=== PATIENT | female | born 1955 | race Caucasian/White ===

== ENCOUNTER → 2017-06-13 | Outpatient (CLI) | payer OTHER ==
[2017-06-13 13:58] LABS: Basophils # (A) 0.1 k/uL (0-0.2); Basophils % (A) 1 %; Eosinophils # (A) 0.4 k/uL (0-0.7); Eosinophils % (A) 4 %; HCT 42.1 % (34.0-46.0); HGB 13.7 gm/dL (11.4-16.0); Lymphocytes # (A) 3.6 k/uL (1.0-4.8); Lymphocytes % (A) 35 %; MCH 30.1 pg (25.0-35.0); MCHC 32.6 g/dL (31.0-37.0); MCV 92.4 fL (80.0-100.0); Mean Platelet Volume 7.9; Monocytes # (A) 0.5 k/uL (0-1.0); Monocytes % (A) 5 %; Neutrophils # (A) 5.6 k/uL (1.3-7.7); Neutrophils % (A) 55 %; Platelet Count 220 k/uL (150-450); RBC 4.56 m/uL (3.80-5.40); RDW 14.1 % (11.5-15.5); WBC 10.3 k/uL (3.8-10.6)
[2017-06-13 14:07] LABS: INR 1.1 (<1.2); Partial Thromboplastin Time 24.7 sec (22.0-30.0); Prothrombin Time 10.3 sec (9.0-12.0)
[2017-06-13 14:13] LABS: Anion Gap 11 mmol/L; Appearance,Urine Cloudy (Clear); Bacteria,Urine Rare /hpf; Bilirubin,Urine Negative (Negative); Blood Urea Nitrogen 13 mg/dL (7-17); Blood,Urine Moderate (Negative); Calcium 9.8 mg/dL (8.4-10.2); Carbon Dioxide 26 mmol/L (22-30); Chloride 109 mmol/L (98-107); Color,Urine Yellow; Glucose 89 mg/dL (74-99); Glucose,Urine (UA) Negative (Negative); Ketones,Urine Negative (Negative); Leukocyte Esterase,Urine Small (Negative); Mucus,Urine Moderate /hpf; Nitrite,Urine Positive (Negative); PH, Urine 5.5 (5.0-8.0); Potassium 4.6 mmol/L (3.5-5.1); Protein,Urine Trace (Negative); RBC,Urine 12 /hpf (0-5); Sodium 146 mmol/L (137-145); Squamous Epithelial Cell,Urine 1 /hpf (0-4); Urobilinogen,Urine <2.0 mg/dL (<2.0); WBC,Urine 14 /hpf (0-5)
--- NOTE | 2017-06-13 15:36 | XR ---
EXAMINATION TYPE: XR chest 2V DATE OF EXAM: 06/13/2017 COMPARISON: Prior chest x-ray 08/17/2013 HISTORY: Preop, asthma TECHNIQUE: Frontal and lateral views of the chest are obtained. FINDINGS: There is no focal air space opacity, pleural effusion, or pneumothorax seen. The cardiac silhouette size is within normal limits. There is a spinal curvature as on prior. Postop changes are noted in the upper abdomen. Prominent lung volumes are compatible with underlying COPD. Bone minerali zation is reduced. The osseous structures are intact. IMPRESSION: No acute cardiopulmonary process.
== END | disposition home or self-care (01) ==
LOC: LABPAT 13:03
PROVIDERS: ATTEND Orthopaedic Surgery Orthopaedic Surgery of the Spine
DX: Z01.818 Encounter for other preprocedural examination (principal); M48.07 Spinal stenosis, lumbosacral region; Z01.812 Encounter for preprocedural laboratory examination
CPT/HCPCS: 36415; 71046; 80048; 81001; 85025; 85610; 85730; 87070

== ENCOUNTER → 2017-07-09 | Outpatient (CLI) | payer OTHER ==
--- NOTE | 2017-07-09 10:21 | US ---
EXAMINATION TYPE: US kidneys/renal and bladder DATE OF EXAM: 07/09/2017 COMPARISON: US CLINICAL HISTORY: R31.29 Hematuria. Patient stated is having cystoscopy today; took prescribed antibi otics for bladder bacteria per patient. EXAM MEASUREMENTS: Right Kidney: 9.6 x 5.2 x 4.4 cm Left Kidney: 9.2 x 3.9 x 4.6 cm Post Void Residual Volume: 95.6 mL Right Kidney: No hydronephrosis or masses seen Left Kidney: No hydronephrosis or masses seen Bladder: questionable left bladder wall thickness was noted Transverse View initially on image #[id number], then reassessed post void on images #[id number], [id number], [id number], 4096, and [id number] with light probe pressure patel sabdominally. Bilateral Jets seen: only left jet was seen on post void Normal Post Void Residual: abnormal as > 50.0ml IMPRESSION: 1. Mild urinary bladder wall thickening seen of the left lateral wall. Correlate with cystoscopy as t he patient is scheduled today for direct visualization. 2. No evidence of hydronephrosis or nephrolithiasis. 3. Abnormal post void residual within the urinary bladder 95.6 mL.
== END | disposition home or self-care (01) ==
LOC: RADUSWWP 08:57
PROVIDERS: ATTEND Urology
DX: N32.89 Other specified disorders of bladder (principal); R93.8 Abnormal findings on diagnostic imaging of other specified body structures; R31.29 Other microscopic hematuria
CPT/HCPCS: 76770

== ENCOUNTER 2017-07-11 09:47 | Inpatient (IN) | payer OTHER ==
[2017-07-04 13:00] VITALS: BMI 25.2
[~2017-07-11 09:47] MED LIST: BACITRACIN 50,000 UNIT, POLYMYXIN B 500,000 UNIT in SODIUM CHLORIDE 0.9% IRRIGATIO 1,00... IRRIGATION ONE; DEXAMETHASONE SOD PHOSPHATE 10 MG/ML 1 ML VIAL IV ONE; HYDROmorphone 0.5 MG/0.5 ML SYRINGE IVP PRN; LACTATED RINGERS 1,000 ML IV SCH; MORPHINE SULFATE 4 MG/ML SYRINGE IVP PRN; ONDANSETRON 4 MG/2 ML VIAL IVP ONE; ceFAZolin IN SWFI 2 GM/20 ML SYRINGE IVP ONE
[2017-07-11] MEDS ORDERED: LIDOCAINE 1% 20 ML VIAL (10MG/ML) FOR IV START INTRADERMA ONE (11:10)
[2017-07-11] MEDS ORDERED: LACTATED RINGERS 1,000 ML IV ONE ×2 (11:10→13:59)
[2017-07-11] MEDS ORDERED: SODIUM CHLORIDE 0.9% IRRIG 1,000 ML BTL IRRIGATION ONE (13:04)
[2017-07-11] MEDS ORDERED: MIDAZOLAM 2 MG/2 ML VIAL ONE (13:04)
[2017-07-11] MEDS ORDERED: HEPARIN SODIUM,PORCINE 10,000 UNIT/ML 1 ML VIAL ONE (13:04)
[2017-07-11] MEDS ORDERED: SUCCINYLCHOLINE CHLORIDE 100 MG/5 ML SYR IV ONE (13:04)
[2017-07-11] MEDS ORDERED: LIDOCAINE 1% INJ 10MG/ML (20 ML MDV) ONE (13:04)
[2017-07-11] MEDS ORDERED: PROPOFOL 10 MG/ML 20 ML VIAL IV ONE (13:04)
[2017-07-11] MEDS ORDERED: ePHEDrine SULFATE/0.9% NACL/PF 50 MG/5 ML SYRINGE IV ONE (13:04)
[2017-07-11] MEDS ORDERED: fentaNYL (PF) 50 MCG/ML 2 ML AMP ONE (13:04)
[2017-07-11] MEDS ORDERED: PHENYLEPHRINE-0.9% NACL SYG 1 MG/10 ML SYRINGE ONE (13:04)
[2017-07-11] MEDS ORDERED: BUPIVACAINE (PF) 0.25% 30 ML VIAL SQ ONE (13:37)
[2017-07-11] MEDS ORDERED: THROMBIN (BOVINE) 5,000 UNIT VIAL TOPICAL ONE (13:44)
[2017-07-11] MEDS ORDERED: GELATIN SPONGE,ABSORB (LARGE) 1 EACH SPONGE TOPICAL ONE (13:45)
[2017-07-11] MEDS ORDERED: HYDROcodone/APAP 5-325MG 1 EACH TAB PO PRN (15:34)
[2017-07-11] MEDS ORDERED: MAGNESIUM HYDROXIDE 2,400 MG/10 ML CUP PO PRN (15:34)
[2017-07-11] MEDS ORDERED: BENZOCAINE/MENTHOL LOZENG 1 EACH LOZENGE MUCOUS MEM PRN (15:34)
[2017-07-11] MEDS ORDERED: MORPHINE SULFATE 4 MG/ML SYRINGE IVP PRN ×2 (15:34)
[2017-07-11] MEDS ORDERED: ALBUTEROL NEBULIZED 2.5 MG/3 ML INHALATION PRN (15:37)
--- NOTE | 2017-07-11 15:44 | P.OP ---
Date of Procedure: 07/11/17 Preoperative Diagnosis: Grade 2 spondylolisthesis L5-S1 Degenerative disc disease Low back pain with lower extremity radiculopathy Foraminal stenosis Postoperative Diagnosis: Same Anesthesia: GETA Pathology: none sent Condition: stable Disposition: PACU Description of Procedure: DESCRIPTION OF PROCEDURE(S): BRIEF OPERATIVE NOTE Preoperative Diagnosis: Grade 2 spondylolisthesis L5-S1, degenerative disc disease, spinal stenosis, low back pain with lower extremity radiculopathy Postoperative Diagnosis: Same Procedure: Laminectomy and decompression with foraminotomy L5-S1 Minimally invasive Posterior lateral decompression and facet fusion L5-S1 Minimally invasive Transforaminal lumbar interbody fusion for a 360 fusion L5-S1 Discectomy for decompression L5-S1 Placement of interbody graft L5-S1 Harvesting of bone marrow aspirate viaThe vertebral body and pedicle of L5 Local autogenous bone grafting Use of Cell Saver Use of bone graft extenders Surgeon: Dr. Jimenez Project Landscape Architect: Nik JOHNSON who is present throughout the entire the case persistence during positioning, dissection, exposure, visualization, and all crucial elements of the case as well as closure. Anesthesia: General anesthesia Estimated blood loss: Approximately 100 mL with none given back through Cell Saver Complications: None apparent Components implanted: K2M [place] minimally invasive pedicle screw system with use of 4 screws measuring 6.5 x 45 mm in length, 2 rods, one Boyd interbody titanium cage, one Osteo amp sponge and 30 mL of DBX bone fibers to supplemental local autogenous bone graft and bone marrow aspirate Disposition: To recovery room in good stable condition. OPERATIVE INDICATIONS The patient has had long-standing issues in their lower back and lower extremities. She was found have a dynamic grade 2 spondylolisthesis L5-S1 with obvious motion and significant disc degeneration. She had foraminal stenosis as well. These findings correlated well with her low back and lower extremity symptoms. The patient has been through conservative treatment. She is not having any prolonged benefit despite aggressive conservative treatment and was having worsening debility due to her low back issues. We discussed various treatment options including surgery, and the patient wishes to proceed with surgery We discussed the risk, patient's alternatives and benefits of surgery including but not limited to, risk of bleeding risk of infection, risk of need for further surgery, risk of decreased, loss of motion, muscle function, malunion nonunion, hardware failure, nerve damage, paralysis, heart attack, blindness and . OPERATIVE SUMMARY After discussing all the risks, patient alternatives and benefits at length, the patient elected to proceed with surgical intervention, signed informed consent, and presented for their procedure. The patient was seen and examined in the preoperative holding area and the surgical site was marked. The patient was given antibiotics and brought to the operating room. The patient was sedated and intubated by anesthesia in standard fashion. The patient was positioned on to the operating room table in a prone position on the appropriate frame which was well-padded and well molded. We were careful to pad any bony prominences and pressure points. We were careful to maintain the patient's cervical spine and good neutral alignment and position throughout. The patient was prepped and draped in a normal standard fashion. An appropriate timeout and keystone protocol performed. We were able to proceed with the surgery. The local wound area was infiltrated with local anesthetic. I was able utilize C-arm guidance to establish appropriate position over the pedicles bilaterally at the appropriate levels at L5-S1. With the appropriate levels confirmed was able to make small stab incisions over the appropriate pedicle sites bilaterally. Utilizing C-arm in his house able to establish a Jamshidi needle over the lateral aspect of the pedicle and advanced the trocar into the pedicle being careful not to breech superiorly inferiorly medially or laterally. Position was confirmed regularly with AP and lateral images on C- arm. I was able to establish the trocar into the pedicle appropriately into the posterior aspect of the vertebral body bilaterally at the appropriate levels at L5 and S1. This was done at each of the pedicle positions and each of the vertebrae. I was able place the guidewire into the trocar and into the vertebral body appropriately under C-arm guidance. Dissection was taken down over the wire to the appropriate starting position for the screw placed. The appropriate length screw was chosen, threaded over the guidewire and screwed appropriately into the pedicle and vertebral body under C-arm guidance in excellent alignment and position with good bony purchase. This is done at each of the screw sites at the appropriate levels at L5 and S1. With the screws intact I extended the incision to connect the screw hole sites on the most symptomatic side on the left. I dissected down to establish access over the pars and lamina to the base of the spinous process. I was able to expose the facet joint. The capsule the facet was taken down and showed some facet arthrosis at the joint. I was able to use a combination of curettes and Kerrison rongeurs and a high-speed drill to take down the facet joint and do a facetectomy. Partial laminectomy was also performed. I was able get excellent foraminal decompression and central decompression with undermining across midline to perform a laminectomy centrally and contralaterally. As able get good central decompression. The ligamentum flavum was taken down to further decompress centrally and at bilateral neural foramen. I was able to expose the disc space and visualize the traversing nerve root. Note was made of some disc protrusion at the level causing further compression of the nerve root. I was able to establish a annulotomy at the appropriate level protecting soft tissue and neural structures. Note was made of some disc desiccation at the disc. I performed a complete discectomy at L5-S1 with accommodation of curettes and rasps and scrapers. Discectomy provided further decompression as well I was able get good endplate preparation at the disc space. I sized for the appropriate size interbody spacer protecting the soft tissue and neural structures. The wound was copiously irrigated and suctioned dry. There is no evidence of any dural tear or leak. I was able to pack the disc space with local autogenous bone graft as well as a small amount of bone graft which was also placed into the interbody cage itself. Protecting the soft tissue structures and neural structures I was able place the interbody cage in good alignment and good position with good fit and fill at the interbody space. His issues was confirmed with C-arm guidance. Good hemostasis maintained. There is no evidence of any dural tear or leak. The wound was irrigated and suctioned dry. With the hardware intact, intraoperative C-arm imaging was again taken which showed good alignment and position of the hardware at the appropriate levels at L5 and S1. We were then able to measure, contour and place the rods and appropriate hardware bilaterally. I was able get some reduction of the listhesis at L5-S1. I was able to place capcrews, tighten them down, and torque them with the torque screwdriver appropriately. With this intact I was able to place the local autogenous bone graft with additional bone graft enhancer as necessary into the posterior lateral gutters over the decorticated transverse processes. The remainder of the bone graft was placed over the facet joint on the contralateral side after taking down the facet joint capsule. With the bone graft intact, a stable construct, and good decompression at the appropriate levels, we were able to proceed with closure. Good hemostasis was maintained. There is no evidence of dural tear or leak. The fascia was closed for a watertight closure. he subcuticular tissue was closed with absorbable suture. The wound was cleaned and dried and dressed with the appropriate dressing. The drapes were broken down. The patient was gently rolled back onto their hospital bed being careful to maintain their cervical spine and good neutral alignment and position. They were woken up by anesthesia, extubated, and brought to the recovery room in good stable condition. The patient will be admitted to the hospital for appropriate postoperative care , medical management and monitoring. We will continue to follow them closely about the postoperative course.
[2017-07-11] MEDS ORDERED: ONDANSETRON 4 MG/2 ML VIAL IVP ONE (15:57)
--- NOTE | 2017-07-11 15:58 | XR ---
Limited lumbar spine HISTORY: Lumbar fusion 2 intraoperative C-arm images document the procedure
[2017-07-11] MEDS: MEPERIDINE 50 MG/ML SYRINGE IVP ONE ×2 (16:12→16:28)
[2017-07-11] MEDS: SODIUM CHLORIDE 0.9% 1,000 ML IV SCH (17:33)
[2017-07-11] MEDS: HYDROcodone/APAP 5-325MG 1 EACH TAB PO PRN ×2 (17:34→21:57)
[2017-07-11] MEDS: GABAPENTIN 300 MG CAP PO SCH ×2 (19:13→21:58)
[2017-07-11] MEDS: ceFAZolin IN SWFI 2 GM/20 ML SYRINGE IVP SCH (19:19)
[2017-07-11] MEDS: IPRATROPIUM-ALBUTEROL 3 ML NEB INHALATION SCH (21:00)
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
[2017-07-11] MEDS: NICOTINE 14MG/24HR PATCH TRANSDERM SCH (21:53)
[2017-07-11] MEDS: DIAZEPAM 5 MG TAB PO PRN (21:57)
[2017-07-12] MEDS: ceFAZolin IN SWFI 2 GM/20 ML SYRINGE IVP SCH (03:12)
[2017-07-12] MEDS: HYDROcodone/APAP 5-325MG 1 EACH TAB PO PRN ×4 (03:15→19:09)
[2017-07-12] MEDS: SODIUM CHLORIDE 0.9% 1,000 ML IV SCH ×2 (03:18→18:14)
[2017-07-12] MEDS: ONDANSETRON 4 MG/2 ML VIAL IVP PRN ×2 (03:26→17:50)
[2017-07-12 06:52] LABS: Basophils % (A) 0 %; Eosinophils # (A) 0.1 k/uL (0-0.7); Eosinophils % (A) 1 %; HCT 36.5 % (34.0-46.0); HGB 11.5 gm/dL (11.4-16.0); Lymphocytes # (A) 1.3 k/uL (1.0-4.8); Lymphocytes % (A) 10 %; MCH 29.3 pg (25.0-35.0); MCHC 31.5 g/dL (31.0-37.0); MCV 93.1 fL (80.0-100.0); Mean Platelet Volume 7.9; Monocytes # (A) 0.6 k/uL (0-1.0); Monocytes % (A) 5 %; Neutrophils # (A) 10.9 k/uL (1.3-7.7); Neutrophils % (A) 84 %; Platelet Count 195 k/uL (150-450); RBC 3.92 m/uL (3.80-5.40); RDW 13.7 % (11.5-15.5)
[2017-07-12 06:56] LABS: Blood Urea Nitrogen 10 mg/dL (7-17); Calcium 8.8 mg/dL (8.4-10.2); Carbon Dioxide 28 mmol/L (22-30); Glucose 121 mg/dL (74-99)
[2017-07-12 07:28] LABS: Anion Gap 8 mmol/L; Chloride 106 mmol/L (98-107); Sodium 142 mmol/L (137-145)
[2017-07-12 07:31] LABS: Potassium 4.8 mmol/L (3.5-5.1)
[2017-07-12] MEDS: GABAPENTIN 300 MG CAP PO SCH ×3 (08:02→21:55)
[2017-07-12] MEDS: amLODIPine 10 MG TAB PO SCH (08:02)
[2017-07-12] MEDS: ESCITALOPRAM 10 MG TAB PO SCH (08:02)
[2017-07-12] MEDS: ASPIRIN 81 MG PO SCH (08:02)
[2017-07-12] MEDS: FAMOTIDINE 20 MG TAB PO SCH (08:02)
[2017-07-12] MEDS: SENNOSIDES-DOCUSATE SODIUM 1 EACH TAB PO SCH (08:02)
[2017-07-12] MEDS: LISINOPRIL 20 MG TAB PO SCH (08:02)
--- NOTE | 2017-07-12 08:24 | P.PN ---
Progress Note - Text Progress Note Date: 07/12/17 Postoperative day #1 Patient is seen and examined today at bedside. The patient has some pain around the surgical site as expected. Pain is being controlled with medication. She has been able to get up out of bed. Her legs feel good but she is having back pain. Physical Exam Afebrile with stable vital signs Abdomen is soft nontender. Chest has good excursion deep and space expiration The incision site is clean dry and intact. No erythema there is no purulence. Extremities have not had neurologic change from prior to surgery. She has sustained dorsal flexion plantarflexion and extensor hallucis longus intact bilaterally. Calves and thighs were soft nontender without evidence of DVT. Assessment/Plan Postoperative day #1 status post minimally invasive decompression and fusion at L5-S1 for her grade 2 spondylolisthesis with degenerative disc disease stenosis and lower extremity radiculopathy Patient is progressing as expected from the surgery. She has already been able to get up out of bed and her legs are doing well. She has back pain as expected. This is being controlled appropriately. She does not feel that she is ready to mobilize on her own and will need another day in the hospital for her to be safely mobile. Hopefully she'll be able to go home and another 1-2 days. We will continue to increase the patient's mobilization with therapy. We will continue pain control with oral or IV medications. We'll continue to follow patient closely.
[2017-07-12] MEDS: BUDESONIDE 1 MG/2 ML NEBU INHALATION PRN ×2 (09:00→21:04)
[2017-07-12] MEDS: IPRATROPIUM-ALBUTEROL 3 ML NEB INHALATION SCH ×5 (09:00→21:02)
--- NOTE | 2017-07-12 15:20 | FL ---
Fluoroscopy HISTORY: Lumbar fusion 70 seconds fluoroscopy time supplied to the referring clinician. 2 intraoperative C-arm images docum ent the procedure. See dictated report from orthopedic surgery.
[2017-07-12] MEDS: HYDROmorphone 2 MG TAB PO PRN (15:56)
[2017-07-12] MEDS: NICOTINE 14MG/24HR PATCH TRANSDERM SCH (16:41)
[2017-07-12] MEDS: DIAZEPAM 5 MG TAB PO PRN (17:53)
--- NOTE | 2017-07-12 21:51 | PN ---
PROGRESS NOTE DATE OF SERVICE: 07/12/2017 PRESENTING COMPLAINT: Lumbar surgery. INTERVAL HISTORY: Patient is status post lumbar surgery, doing much better, did actually walk to the bathroom, ate a little bit of breakfast. Family at the bedside. Some pain is present with activity. Breathing is better with bronchodilators. REVIEW OF SYSTEMS: Done for constitutional, cardiovascular, GI, pulmonary, musculoskeletal; relevant findings as above. CURRENT MEDICATIONS: Reviewed. EXAMINATION: Temperature 98.9, pulse 80, respirations 14, blood pressure 118/58, pulse ox 94% on room air. GENERAL APPEARANCE: Lying in bed, comfortable. EYES: Left eye is artificial. HEENT: External appearance of nose and ears normal. Oral cavity normal. NECK: JVD unable to assess. Mass not palpable. Respiratory effort normal. LUNGS: Diminished breath sounds. CARDIOVASCULAR: First and second sounds normal. No edema. ABDOMEN: Soft, nontender. Liver, spleen not palpable. PSYCHIATRY: Alert and oriented x3. Mood and affect are normal. INVESTIGATIONS: White count 13, hemoglobin 11.5. Potassium 4.8. ASSESSMENT: 1. Grade 2 spondylolisthesis L5-L1 with foraminal stenosis causing radiculopathy followed by laminectomy and decompression with foraminotomy. 2. Chronic obstructive pulmonary disease in a current smoker. 3. Chronic nicotine dependence. Patient an active cigarette smoker. 4. Gastroesophageal reflux disease. 5. Essential hypertension. 6. Aortic stenosis. 7. Artificial left eye. 8. Depression, not otherwise specified. PLAN: Continue current medication and treatment plan. Care was discussed the patient. Questions were answered. Will follow. MMODL / IJN: [id number] /
[2017-07-13] MEDS: HYDROcodone/APAP 5-325MG 1 EACH TAB PO PRN ×5 (00:31→19:33)
[2017-07-13 07:34] LABS: Basophils % (A) 0 %; Eosinophils # (A) 0.1 k/uL (0-0.7); Eosinophils % (A) 0 %; HCT 32.7 % (34.0-46.0); HGB 10.5 gm/dL (11.4-16.0); Lymphocytes # (A) 2.1 k/uL (1.0-4.8); Lymphocytes % (A) 14 %; MCH 29.7 pg (25.0-35.0); MCV 92.9 fL (80.0-100.0); Mean Platelet Volume 8.7; Monocytes % (A) 7 %; Neutrophils # (A) 11.4 k/uL (1.3-7.7); Neutrophils % (A) 77 %; Platelet Count 160 k/uL (150-450); RBC 3.52 m/uL (3.80-5.40); RDW 13.7 % (11.5-15.5); WBC 14.8 k/uL (3.8-10.6)
--- NOTE | 2017-07-13 08:52 | P.PN ---
Progress Note - Text Progress Note Date: 07/13/17 Orthopedic Spine Patient is a pleasant 61-year-old female who is seen and examined at the bedside following posterior lateral decompression and fusion performed yesterday. Patient states they are doing ok postsurgically. She continues to have significant low back pain at the surgical sites. She has been eating bleeding with assistance of physical therapy. She continues to have some left lower extremity radiculopathy which was present prior to surgical intervention. She does not feel she is currently ready to be discharged home. Currently does not complain of nausea, vomiting, fever, or chills. Patient states pain has been adequately controlled with [place]. She states she does use medical marijuana as prescribed her some pain control at home. She does not currently feel medical marijuana at home alone will be enough to control her pain at discharge. We did discuss we'll plan to discharge her with a short course of [place] as needed for pain control and will plan to wean her back off of this in the outpatient setting. Patient is eating and voiding freely without difficulty. She'll be given a prescription for Glenford 5 mg/325 mg 1-2 tabs every 6 hours as needed for pain, dispense #90 at discharge. This prescription has been written and is placed in her chart. Physical Exam Lumbar Fusion: Status post surgical day number 2 Patient is awake, alert, and oriented 3 Vital signs stable Good chest excursion with deep inspiration and expiration Abdomen soft nontender Dorsiflexion, plantarflexion, and extensor hallucis longus positive sustained bilaterally No signs or symptoms of DVT; no calf pain; pneumatic cuffs not currently intact bilateral lower extremities Dressing is dry and intact; no erythema, purulence, or signs of infection Some evidence of dried blood at the inferior portion of the incision sites No active drainage from the incision sites Neurovascularly intact bilaterally lower extremities Assessment: Minimally invasive posterior lateral decompression and fusion with transforaminal lumbar interbody fusion L5-S1 Low back pain Left lower extremity radiculopathy Plan: 1. Ambulate as tolerated; work with Physical Therapy to increase mobilization 2. Continue pain control with oral medications 3. Dressing to remain intact and can be changed to Telfa nonstick Tegaderm prior to discharge 4. Medical management can continue to manage patient for patient's other medical issues 5. We will continue to follow the patient closely; if the patient is able to improve throughout the day and into tomorrow, we may plan for discharge home as early as tomorrow, 07/14/2017 6. Patient can follow-up with Nik Archer PA-C or Dr. Ulysses Jimenez at [facility] in 2-3 weeks following discharge
[2017-07-13] MEDS: IPRATROPIUM-ALBUTEROL 3 ML NEB INHALATION SCH ×4 (08:57→19:15)
[2017-07-13] MEDS: BUDESONIDE 1 MG/2 ML NEBU INHALATION PRN (09:00)
[2017-07-13] MEDS: ESCITALOPRAM 10 MG TAB PO SCH (10:45)
[2017-07-13] MEDS: GABAPENTIN 300 MG CAP PO SCH ×3 (10:45→19:33)
[2017-07-13] MEDS: FAMOTIDINE 20 MG TAB PO SCH (10:45)
[2017-07-13] MEDS: ASPIRIN 81 MG PO SCH (10:45)
[2017-07-13] MEDS: ONDANSETRON 4 MG/2 ML VIAL IVP PRN ×2 (11:30→22:12)
[2017-07-13] MEDS: NICOTINE 14MG/24HR PATCH TRANSDERM SCH (11:32)
[2017-07-13] MEDS: SENNOSIDES-DOCUSATE SODIUM 1 EACH TAB PO SCH (11:32)
[2017-07-13] MEDS: SODIUM CHLORIDE 0.9% 1,000 ML IV SCH ×2 (11:42→21:41)
[2017-07-13] MEDS: amLODIPine 10 MG TAB PO SCH (12:00)
[2017-07-13] MEDS ORDERED: SODIUM CHLORIDE 0.9% 500 ML IV ONE (12:00)
[2017-07-13] MEDS: LISINOPRIL 20 MG TAB PO SCH (12:00)
[2017-07-13] MEDS: DIAZEPAM 5 MG TAB PO PRN (12:36)
--- NOTE | 2017-07-13 17:46 | PN ---
PROGRESS NOTE DATE OF SERVICE: 07/13/2017 PRESENTING COMPLAINT: Lumbar surgery. INTERVAL HISTORY: Patient status post lumbar surgery, using a walker to get about. Pain is still present. Has not had a bowel movement. Tolerating small amount of meals. Blood pressure has been running low. Antihypertensives were held this morning. REVIEW OF SYSTEMS: Done for constitutional, cardiovascular, GI, pulmonary, musculoskeletal and findings as above. CURRENT MEDICATIONS: Reviewed. EXAMINATION: Temperature 98.5, pulse 85, respiration 16, blood pressure 111/51, repeat was 85/43. GENERAL APPEARANCE: Comfortable. EYES: Left eye is artificial. HEENT: External appearance of nose and ears normal. Oral cavity normal. NECK: JVD unable to assess. Mass not palpable. Respiratory effort normal. LUNGS: Decreased breath sounds. CARDIOVASCULAR: First and second sounds normal. No edema. ABDOMEN: Soft, nontender. Liver and spleen not palpable. PSYCHIATRY: Alert and oriented x3. Mood and affect are normal. INVESTIGATIONS: White count 14.8, hemoglobin 10.5. ASSESSMENT: 1. Grade 2 spondylolisthesis L5-L1 with foraminal stenosis causing radiculopathy followed by laminectomy and decompression with foraminotomy. 2. Chronic obstructive pulmonary disease in a current smoker. 3. Chronic nicotine dependence. Patient an active cigarette smoker. 4. Gastroesophageal reflux disease. 5. History of essential hypertension. 6. Aortic stenosis. 7. Artificial left eye. 8. Depression, not otherwise specified. 9. Postop hypotension likely from blood loss. PLAN: At this point the patient's amlodipine and lisinopril is to be discontinued. The patient ordered a fluid bolus. Hydration to continue. The patient's antihypertensive can be reintroduced as an outpatient when blood pressure comes up. MMODL / IJN: [id number] /
[2017-07-13] MEDS: HYDROmorphone 2 MG TAB PO PRN (20:37)
[2017-07-14] MEDS: HYDROcodone/APAP 5-325MG 1 EACH TAB PO PRN ×2 (00:18→05:27)
[2017-07-14] MEDS ORDERED: diphenhydrAMINE 25 MG CAP ONE (03:37)
[2017-07-14] MEDS: diphenhydrAMINE 25 MG CAP PO PRN (03:38)
[2017-07-14] MEDS: DIAZEPAM 5 MG TAB PO PRN ×3 (05:27→21:06)
[2017-07-14 07:13] LABS: Basophils % (A) 0 %; Eosinophils # (A) 0.1 k/uL (0-0.7); Eosinophils % (A) 1 %; HGB 9.2 gm/dL (11.4-16.0); Lymphocytes # (A) 2.1 k/uL (1.0-4.8); Lymphocytes % (A) 20 %; MCH 29.4 pg (25.0-35.0); MCHC 31.8 g/dL (31.0-37.0); MCV 92.4 fL (80.0-100.0); Mean Platelet Volume 8.9; Monocytes # (A) 0.7 k/uL (0-1.0); Monocytes % (A) 6 %; Neutrophils # (A) 7.4 k/uL (1.3-7.7); Neutrophils % (A) 72 %; Platelet Count 144 k/uL (150-450); RBC 3.13 m/uL (3.80-5.40); RDW 13.8 % (11.5-15.5); WBC 10.3 k/uL (3.8-10.6)
[2017-07-14] MEDS: IPRATROPIUM-ALBUTEROL 3 ML NEB INHALATION SCH ×5 (08:21→20:11)
[2017-07-14] MEDS: BUDESONIDE 1 MG/2 ML NEBU INHALATION PRN (08:21)
[2017-07-14] MEDS: HYDROmorphone 4 MG TABLET PO PRN ×3 (08:49→23:21)
[2017-07-14] MEDS: GABAPENTIN 300 MG CAP PO SCH ×3 (08:50→20:33)
[2017-07-14] MEDS: ASPIRIN 81 MG PO SCH (08:51)
[2017-07-14] MEDS: ESCITALOPRAM 10 MG TAB PO SCH (08:51)
[2017-07-14] MEDS: FAMOTIDINE 20 MG TAB PO SCH (08:51)
[2017-07-14] MEDS: NICOTINE 14MG/24HR PATCH TRANSDERM SCH (08:52)
[2017-07-14] MEDS: SENNOSIDES-DOCUSATE SODIUM 1 EACH TAB PO SCH (08:56)
[2017-07-14] MEDS ORDERED: HYDROcodone/APAP 7.5-325MG 1 EACH TAB PO PRN (09:59)
--- NOTE | 2017-07-14 10:04 | P.PN ---
Subjective Progress Note Date: 07/14/17 Principal diagnosis: Status post lumbar fusion L5-S1 This is a 61-year-old female who is status post posterior lumbar decompression and fusion of L5-S1. She had been doing fairly well postoperatively. She states that last night she began having moderate to severe left leg pain which shoots from her left hip down to her foot. She denies numbness or tingling. She states that the pain is similar to what she had preoperatively but states that it is much worse. She states that when she gets up to ambulate it feels that her leg is giving out on her. Objective - Vital Signs Vital signs: Vital Signs Temp 98.4 F 07/14/17 02:00 Pulse 86 07/14/17 02:00 Resp 16 07/14/17 02:00 BP 120/64 07/14/17 02:00 Pulse Ox 98 07/14/17 02:00 Intake & Output 07/13/17 07/14/17 07/14/17 18:59 06:59 18:59 Intake Total 1340 480 Balance 1340 480 Intake: IV 500 Sodium Chloride 0.9% 500 500 ml @ 999 mls/hr IV .Q31M ONE Rx#:[id number] Oral 840 480 Other: Voiding Method Toilet Toilet # Voids 2 5 - Exam This is a pleasant 61-year-old female in no acute distress. She is alert and oriented 3. She is lying on her left side with a pillow between her knees. She is able to move both feet. She has normal sensation to the toes. Pedal pulses are +2/4 bilaterally. Exam of her back reveals that her Tegaderm dressing has a scant amount of bloody drainage. There is no erythema to the surrounding area. - Labs CBC & Chem 7: 07/14/17 06:13 07/12/17 06:11 Labs: Abnormal Lab Results - Last 24 Hours (Table) 07/14/17 Range/Units 06:13 RBC 3.13 L (3.80-5.40) m/uL Hgb 9.2 L (11.4-16.0) gm/dL Hct 29.0 L (34.0-46.0) % Plt Count 144 L (150-450) k/uL Assessment and Plan (1) Status post lumbar spinal fusion Current Visit: Yes Status: Acute Code(s): Z98.1 - ARTHRODESIS STATUS SNOMED Code(s): 78955185359020 (2) Spondylolisthesis at L5-S1 level Current Visit: Yes Status: Acute Code(s): M43.17 - SPONDYLOLISTHESIS, LUMBOSACRAL REGION SNOMED Code(s): 644265921 Plan: The clinical findings are discussed the patient. I did speak with Dr. Jimenez who would like to get AP and lateral x-rays of the lumbar spine. I will increase her B[place] to 7.5/325mg. I will hold discharge today.
--- NOTE | 2017-07-14 11:11 | XR ---
EXAMINATION TYPE: XR lumbar spine 2 or 3V DATE OF EXAM: 07/14/2017 COMPARISON: NONE HISTORY: Postop lumbar fusion TECHNIQUE: Three-view lumbar spine FINDINGS: Pedicle screws are present L5-S1. Disc spacer is present L5-S1. Remaining disc height and vertebral body heights are preserved. There is a scoliosis present with convexity to right. On the lateral lumbar spine film there appears to be a grade 2 spondylolisthesis of L5 anterior on S1 . Sacral base view however has a mild grade 1 spondylolisthesis. Rotation appears similar. IMPRESSION: 1. There appears to be some variable subluxation of L5 anteriorly on S1 up to grade 2 spondylolisthe sis.
[2017-07-14] MEDS: HYDROcodone/APAP 7.5-325MG 1 EACH TAB PO PRN ×2 (12:40→19:28)
[2017-07-14 13:25] LABS: Appearance,Urine Clear (Clear); Bilirubin,Urine Negative (Negative); Blood,Urine Small (Negative); Color,Urine Light Yellow; Glucose,Urine (UA) Negative (Negative); Ketones,Urine Negative (Negative); Leukocyte Esterase,Urine Negative (Negative); Mucus,Urine Rare /hpf; PH, Urine 7.5 (5.0-8.0); Protein,Urine Negative (Negative); RBC,Urine 6 /hpf (0-5); Specific Gravity,Urine 1.007 (1.001-1.035); Squamous Epithelial Cell,Urine 1 /hpf (0-4); Urobilinogen,Urine <2.0 mg/dL (<2.0); WBC,Urine <1 /hpf (0-5)
--- NOTE | 2017-07-14 17:42 | PN ---
PROGRESS NOTE DATE OF SERVICE: 07/14/2017. This 61-year-old woman who was admitted with grade 2 spondylolisthesis surgery is being closely monitored. Patient complaining of severe pain. No chest pain. No palpitations. No fever. PHYSICAL EXAM: Alert and oriented x3. Pulse 76, blood pressure 105/56, respiration 23, temperature 98.1, pulse ox 95% on room air. HEENT: Conjunctivae normal. NECK: No jugular venous distention. CARDIOVASCULAR: S1, S2. RESPIRATORY: Breath sounds diminished in the bases. No rhonchi, no crackles. ABDOMEN: Soft, nontender. No mass palpable. LEGS: No edema. NERVOUS SYSTEM: No focal deficits. Examination of back, status post surgery. LABS: WBC 10.2, hemoglobin 9.2. UA noted. ASSESSMENT: 1. Grade 2 spondylolisthesis L5-S1 with foraminal stenosis causing radiculopathy followed by laminectomy and decompression with foraminotomy. 2. Chronic obstructive pulmonary disease, current smoker. 3. Chronic nicotine dependence. 4. Gastroesophageal reflux disease. 5. History of hypertension. 6. History of aortic stenosis. 7. Artificial left eye. 8. Depression, not otherwise specified. 9. Postop hypotension likely from blood loss. RECOMMENDATIONS AND DISCUSSION: I recommend to continue current management and symptomatic treatment. Otherwise at this time I recommend monitor closely. WBC is normalized. PT, OT evaluation. Continue the pain medications. Guarded prognosis. Further recommendations to follow. MMODL / IJN: [id number] /
[2017-07-14] MEDS: SODIUM CHLORIDE 0.9% 1,000 ML IV SCH ×2 (18:16→22:44)
[2017-07-14] MEDS ORDERED: methylPREDNISolone SOD SUCCI 125 MG/2 ML VIAL IV STA (20:41)
[2017-07-14] MEDS: ONDANSETRON 4 MG/2 ML VIAL IVP PRN (23:21)
[2017-07-15] MEDS: HYDROcodone/APAP 7.5-325MG 1 EACH TAB PO PRN ×4 (02:10→22:39)
[2017-07-15] MEDS: DIAZEPAM 5 MG TAB PO PRN ×3 (06:54→19:41)
[2017-07-15] MEDS: IPRATROPIUM-ALBUTEROL 3 ML NEB INHALATION SCH ×4 (07:27→19:21)
[2017-07-15] MEDS: BUDESONIDE 1 MG/2 ML NEBU INHALATION PRN (07:27)
[2017-07-15] MEDS: NICOTINE 14MG/24HR PATCH TRANSDERM SCH (09:00)
[2017-07-15] MEDS: FAMOTIDINE 20 MG TAB PO SCH (09:01)
[2017-07-15] MEDS: ESCITALOPRAM 10 MG TAB PO SCH (09:01)
[2017-07-15] MEDS: GABAPENTIN 300 MG CAP PO SCH ×3 (09:01→19:41)
[2017-07-15] MEDS: ASPIRIN 81 MG PO SCH (09:01)
[2017-07-15] MEDS: SENNOSIDES-DOCUSATE SODIUM 1 EACH TAB PO SCH (09:07)
--- NOTE | 2017-07-15 10:07 | P.PN ---
Progress Note - Text Progress Note Date: 07/15/17 Postoperative day #4 Patient is seen and examined today at bedside. The patient has some pain around the surgical site as expected. Her main pain is down her left leg. This started yesterday and has been somewhat debilitating for her. It travels down the back and side of her left thigh toward her outside of her calf and towards the top of her left foot. She is able to move her leg in bed quite well and does not feel week while in bed but has great copiously with putting any weight on her left leg and is unable to ambulate because of it. Pain is being controlled with medication. Physical Exam Afebrile with stable vital signs Abdomen is soft nontender. Chest has good excursion deep and space expiration The incision site is clean dry and intact. No erythema there is no purulence. The dressing is taken down and there is no drainage or significant swelling. There is some mild bruising but no evidence of any infection Extremities have not had neurologic change from prior to surgery. She has sustained dorsal flexion plantar flexion and extensor hallucis longus hip flexion and knee extension intact unchanged from prior to her surgery. She does have pain with straight leg raise. She has great copiously with putting any weight on that left leg due to her pain. Calves and thighs were soft nontender without evidence of DVT. Assessment/Plan Postoperative day #4 status post minimally invasive decompression and fusion L5- S1 Left lower extremity radiculopathy Patient is progressing as expected from the surgery in terms of her back pain but is having some increased trouble with her left leg over the past 2 days. We checked new x-rays yesterday and her hardware appears to be well aligned at L5-S1 without any motion or evidence of change in position from her surgical imaging. The adjacent level appears to be intact without collapse. The wound is doing well and I do not see any acute change at the wound site itself. Her left leg strength appears to be intact while she is in bed but she is having great difficulty when she gets up. She may be having significant piriformis spasm causing problems with her sciatic nerve when she gets up and may be having some irritation over her sciatic nerves well. It is possible that there is an adjacent level herniation as well. This is new for her in terms of the inability to ambulate but I did not plan any aggressive surgical intervention at this point. I do not think further imaging would give a significant information and sural be significant postoperative changes and fluid collection at this point. She had some benefit last night with a dose of steroid and I will put her on an oral steroid and starting today. She should continue her Neurontin and muscle relaxant. She has been on a nicotine patch per medicine and we will discontinue that today. We will continue to increase the patient's mobilization with therapy. She may continue weightbearing as tolerated. I think that she'll need to stay in the hospital until she is safer with her mobilization and ambulation. Her wound is clear and it is okay for her to shower with area uncovered believed Steri-Strips intact and allow them to fray off on their own. We will continue pain control with oral or IV medications. We'll continue to follow patient closely.
[2017-07-15] MEDS: LISINOPRIL 20 MG TAB PO SCH (14:30)
[2017-07-15] MEDS: amLODIPine 10 MG TAB PO SCH (14:30)
--- NOTE | 2017-07-15 17:34 | PN ---
PROGRESS NOTE DATE OF SERVICE: 07/15/2017 INTERIM HISTORY: This 61-year-old woman who was admitted after surgery for Grade II spondylosis is improved significantly. No chest pain. No palpitations. No fever. EXAM: Alert, and oriented times three. Pulse 76, blood pressure 160/42, respiration 20 , temperature 98.0, pulse ox 98% on room air. HEENT: Conjunctivae normal. Oral mucosa moist. Neck: No jugular venous distention. Cardiovascular: S1, S2 muffled. Respirations: Breath sounds diminished in the bases. No rhonchi and no crackles. Abdomen is soft, nontender. Legs are no edema. No swelling. Nervous system: No focal deficits. Back status post surgery. LABS: WBC 7.2, hemoglobin 9.3. UA is unremarkable. ASSESSMENT: 1. Grade II spondylosis L5-S1 with foraminal stenosis followed by laminectomy and decompression foraminectomy. 2. Chronic obstructive pulmonary disease. 3. History of nicotine dependence. 4. History of gastroesophageal reflux disease. 5. Hypertension. 6. History of aortic stenosis. 7. Increased WBC possibly reactive, improved. 8. Artificial left eye. 9. Depression not otherwise specified. 10.Postoperative hypotension possibly from blood loss. RECOMMENDATIONS AND DISCUSSION: Recommend to continue current medications, management and symptomatic treatment. Blood pressure is improved. I would recommend resume the patient's home medications for hypertension. Otherwise repeat labs and incentive spirometry. We will follow the patient closely. JARAD / MEAGANN: [id number] / MTDD
[2017-07-15] MEDS: HYDROmorphone 4 MG TABLET PO PRN (21:05)
[2017-07-15] MEDS: ONDANSETRON 4 MG/2 ML VIAL IVP PRN (21:05)
[2017-07-15] MEDS: SODIUM CHLORIDE 0.9% 1,000 ML IV SCH (21:16)
[2017-07-15] MEDS: diphenhydrAMINE 25 MG CAP PO PRN (22:45)
[2017-07-16] MEDS: HYDROmorphone 4 MG TABLET PO PRN (01:27)
[2017-07-16 01:56] VITALS: RESP 16
[2017-07-16] MEDS: SODIUM CHLORIDE 0.9% 1,000 ML IV SCH (02:24)
[2017-07-16] MEDS: HYDROcodone/APAP 7.5-325MG 1 EACH TAB PO PRN ×2 (03:31→08:53)
[2017-07-16 07:15] VITALS: BP 131/58; TEMP 98
[2017-07-16] MEDS: amLODIPine 10 MG TAB PO SCH (08:42)
[2017-07-16] MEDS: LISINOPRIL 20 MG TAB PO SCH (08:42)
[2017-07-16] MEDS: ASPIRIN 81 MG PO SCH (08:43)
[2017-07-16] MEDS: ESCITALOPRAM 10 MG TAB PO SCH (08:45)
[2017-07-16] MEDS: GABAPENTIN 300 MG CAP PO SCH ×2 (08:45→13:43)
[2017-07-16] MEDS: FAMOTIDINE 20 MG TAB PO SCH (08:45)
[2017-07-16] MEDS: DIAZEPAM 5 MG TAB PO PRN (08:53)
[2017-07-16] MEDS: SENNOSIDES-DOCUSATE SODIUM 1 EACH TAB PO SCH (08:53)
[2017-07-16] MEDS ORDERED: predniSONE 20 MG TAB PO SCH (09:00)
[2017-07-16] MEDS: IPRATROPIUM-ALBUTEROL 3 ML NEB INHALATION SCH ×2 (09:07→12:20)
[2017-07-16] MEDS: BUDESONIDE 1 MG/2 ML NEBU INHALATION PRN (09:08)
--- NOTE | 2017-07-16 09:11 | P.DS ---
Providers Date of admission: 07/11/17 09:47 Expected date of discharge: 07/16/17 Attending physician: Sajan Jimenez Consults: 07/11/17 15:34 Consult Physician Routine Consulting Provider: Facundo Pepe Consult Reason/Comments: Medical management Do you want consulting provider notified?: Yes Primary care physician: Michael Rich - Discharge Diagnosis(es) (1) Spinal stenosis of lumbosacral region Current Visit: Yes Status: Acute (2) Degenerative disc disease at L5-S1 level Current Visit: Yes Status: Acute (3) Low back pain Current Visit: Yes Status: Acute (4) Lumbar back pain with radiculopathy affecting left lower extremity Current Visit: Yes Status: Acute (5) Spondylolisthesis at L5-S1 level Current Visit: Yes Status: Acute (6) Status post lumbar spinal fusion Current Visit: Yes Status: Acute Hospital Course: This is a pleasant 61-year-old female who presented with L5-S1 grade 2 spondylolisthesis, degenerative disc disease, and spinal canal stenosis with low back pain and lower extremity radiculopathy who failed outpatient conservative therapy. She was admitted for a minimally invasive posterior lateral decompression and fusion with transforaminal lumbar interbody fusion at L5-S1. Patient has continued to have some low back pain at the surgical sites postoperatively but states this has been improving over the weekend. She continues to have some left lower extremity radiculopathy symptoms which were present prior to surgical intervention. Between Sunday afternoon and Sunday her symptoms significantly worsened with the left lower extremity and she was having significant difficulty with standing on the left lower extremity. She received an IV dose of steroid yesterday. Since that time, she has had improvement of her symptoms. She continues to have some left lower extremity radiculopathy but states she is now able to stand on the left lower extremity and has been ambulating with the assistance of a walker. She does feel due to her improvement she is ready for discharge today. She is planning to be discharged home. Condition on day of discharge stable. Patient will be discharged home. Patient was cleared preoperatively for surgery by Dr. Rich. Patient currently denies any nausea, vomiting, fever, or chills. Patient is eating and voiding freely without difficulty. Patient may shower out a dressing intact at this time. Patient should keep Steri-Strips intact and allow them to fall off naturally. Patient should refrain from driving until at least after their first follow-up appointment in the office. Patient should avoid excessive bending, lifting, and twisting; no lifting greater than 10 pounds. Patient is passing gas and her abdomen has remained soft nontender but has not had a bowel movement. She'll be given a prescription for Senokot twice a day dispense #60 at discharge. Prescriptions have already been written for [place] 5 mg/325 mg 1-2 tabs every 6 hours as needed for pain dispense #90 and prednisone 20 mg take as directed dispense #24 at discharge. We discussed she should take this prednisone taper until completion. We'll plan have her follow- up in the office in approximately 2 weeks for further evaluation. A prescription for a walker is written. She may use his walker to aid in ambulation as needed. Physical Exam on day of discharge: Patient is awake, alert, and oriented 3 Vital signs stable Good chest excursion with deep inspiration and expiration Abdomen soft nontender No signs or symptoms of DVT; no calf pain Extensor hallucis longus, plantarflexion, and dorsiflexion positive sustained bilateral lower extremities Patient is able to stand at the bedside and weight-bear on the bilateral lower extremities Incision is clean, dry, and intact; no erythema, purulence, or signs of infection Some pain with palpation over the surgical sites Evidence of bruising and some swelling around the lumbosacral spine around the surgical sites Steri-Strips remain intact Procedures: L5-S1 minimally invasive posterior lateral decompression and fusion with transforaminal lumbar interbody fusion Patient Condition at Discharge: Stable Plan - Discharge Summary Discharge Rx Participant: Yes New Discharge Prescriptions: New HYDROcodone/APAP 5-325MG [[place] 5-325] 1 - 2 tab PO Q6HR PRN #90 tab PRN Reason: Pain predniSONE 20 mg PO DIRECTED #24 tab Sennosides-Docusate Sodium [Senokot-S] 1 tab PO BID PRN #60 tablet PRN Reason: Constipation No Action Escitalopram [Lexapro] 10 mg PO QAM Albuterol Inhaler [Ventolin Hfa Inhaler] 1 - 2 puff INHALATION RT-Q6H PRN PRN Reason: Shortness Of Breath amLODIPine BESYLATE/BENAZEPRIL [amLODIPine BESYLATE/BENAZEPRIL 10-40 mg] 1 cap PO QAM Famotidine 40 mg PO QAM Gabapentin [Neurontin] 300 mg PO TID Beclomethasone Dip 80 Mcg/Puff [Qvar 80 mcg] 1 puff INHALATION RT-BID PRN PRN Reason: Shortness Of Breath Acetaminophen [Tylenol Extra Strength] 1,000 mg PO QID PRN PRN Reason: Pain Aspirin [Children's Aspirin] 81 mg PO DAILY Discharge Medication List Acetaminophen [Tylenol Extra Strength] 1,000 mg PO QID PRN 06/12/17 [History] Albuterol Inhaler [Ventolin Hfa Inhaler] 1 - 2 puff INHALATION RT-Q6H PRN [History] Aspirin [Children's Aspirin] 81 mg PO DAILY 06/12/17 [History] Beclomethasone Dip 80 Mcg/Puff [Qvar 80 mcg] 1 puff INHALATION RT-BID PRN [History] Escitalopram [Lexapro] 10 mg PO QAM 06/12/17 [History] Famotidine 40 mg PO QAM 06/12/17 [History] Gabapentin [Neurontin] 300 mg PO TID 06/12/17 [History] amLODIPine BESYLATE/BENAZEPRIL [amLODIPine BESYLATE/BENAZEPRIL 10-40 mg] 1 cap PO QAM 06/12/17 [History] HYDROcodone/APAP 5-325MG [[place] 5-325] 1 - 2 tab PO Q6HR PRN #90 tab 07/13/17 [ Rx] predniSONE 20 mg PO DIRECTED #24 tab 07/15/17 [Rx] Sennosides-Docusate Sodium [Senokot-S] 1 tab PO BID PRN #60 tablet 07/16/17 [Rx] Follow up Appointment(s)/Referral(s): Michael Rich MD [Primary Care Provider] - 07/20/17 11:00 am Nik Archer PAC [PHYSICIAN PRACTICE SUPPORT SPECIALIST] - 07/27/17 1:10 pm (Patient may follow-up with Nik Archer PA-C or Dr. Ulysses Jimenez at [facility] in 2-3 weeks following discharge. ) Activity/Diet/Wound Care/Special Instructions: 1. Patient may shower without a dressing at this time. 2. Patient should keep Steri-Strips intact and allow them to fall off naturally. 3. Patient should refrain from driving until at least after their first follow- up appointment in the office. 4. Patient should avoid excessive bending, twisting, and lifting; no lifting greater than 10 pounds 5. Take medications as prescribed 6. Do not soak in tub Discharge Disposition: HOME SELF-CARE
[2017-07-16 12:30] VITALS: PULSE 80
--- NOTE | 2017-07-16 17:41 | PN ---
PROGRESS NOTE INTERVAL HISTORY: This 61-year-old woman was admitted with back surgery for grade 2 spondylosis, being closely monitored. No chest pain. No palpitations. No fever. Patient improved significantly. PHYSICAL EXAM: Alert and oriented times three. Pulse is 64. Blood pressure 131/58, respirations 16, temperature is 98 degrees, pulse ox 94% on room air. HEENT is conjunctivae normal. Oral mucosa moist. Neck is no jugular venous distention. No carotid bruit. No lymph node enlargement. Cardiovascular system: S1, S2. No S3, no S4. RESPIRATORY: Breath sounds diminished in the bases. No rhonchi and no crackles. ABDOMEN: Soft, nontender. Legs no edema. No swelling. Back status post surgery. LABS: WBC 10.2, hemoglobin 9.3. UA unremarkable. ASSESSMENT: 1. Grade 2 spondylosis, L5-S1 with foraminal stenosis followed by laminectomy and decompression and foraminectomy. 2. History of chronic obstructive pulmonary disease. 3. History of nicotine dependence. 4. History of gastroesophageal reflux disease. 5. Hypertension. 6. History aortic stenosis. 7. History of increased WBC. Possibly reactive improved. 8. Artificial left eye. 9. Depression, not otherwise specified. No postoperative hypotension possibly from blood loss. RECOMMENDATIONS AND DISCUSSION: Recommend to continue current medications, continue symptomatic treatment. Otherwise, at this time, I recommend resume the home medications including amlodipine and benazepril. Monitor blood sugar closely. Closely follow with primary care physician Dr. Rich. Further recommendations to follow. MMODL / IJN: [id number] /
== END 2017-07-16 14:05 | disposition home or self-care (01) | DRG 454 ==
LOC: 2ORMAIN 09:47 → 3SUR 15:33
PROVIDERS: ADMIT Orthopaedic Surgery Orthopaedic Surgery of the Spine; ATTEND Orthopaedic Surgery Orthopaedic Surgery of the Spine
PROC: 0SG3071 Fusion of Lumbosacral Joint with Autologous Tissue Substitute, Posterior Approach, Posterior Column, Open Approach (ICD-10-PCS; 2017-07-11)
PROC: 0ST40ZZ Resection of Lumbosacral Disc, Open Approach (ICD-10-PCS; 2017-07-11)
PROC: 07DS3ZZ Extraction of Vertebral Bone Marrow, Percutaneous Approach (ICD-10-PCS; 2017-07-11)
PROC: 4A11X4G Monitoring of Peripheral Nervous Electrical Activity, Intraoperative, External Approach (ICD-10-PCS; 2017-07-11)
PROC: 30233N0 Transfusion of Autologous Red Blood Cells into Peripheral Vein, Percutaneous Approach (ICD-10-PCS; 2017-07-11)
PROC: 0SG30AJ Fusion of Lumbosacral Joint with Interbody Fusion Device, Posterior Approach, Anterior Column, Open Approach (ICD-10-PCS; principal; 2017-07-11 11:45)
DX: M43.17 Spondylolisthesis, lumbosacral region (principal); G95.0 Syringomyelia and syringobulbia; I95.9 Hypotension, unspecified; M41.9 Scoliosis, unspecified; J44.9 Chronic obstructive pulmonary disease, unspecified; R31.21 Asymptomatic microscopic hematuria; M51.17 Intervertebral disc disorders with radiculopathy, lumbosacral region; M48.061 Spinal stenosis, lumbar region without neurogenic claudication; M48.07 Spinal stenosis, lumbosacral region; M47.27 Other spondylosis with radiculopathy, lumbosacral region; E55.9 Vitamin D deficiency, unspecified; I08.0 Rheumatic disorders of both mitral and aortic valves; I10 Essential (primary) hypertension; E78.5 Hyperlipidemia, unspecified; F32.9 Major depressive disorder, single episode, unspecified; K21.9 Gastro-esophageal reflux disease without esophagitis; F41.9 Anxiety disorder, unspecified; E78.00 Pure hypercholesterolemia, unspecified; F17.218 Nicotine dependence, cigarettes, with other nicotine-induced disorders; G43.909 Migraine, unspecified, not intractable, without status migrainosus; H54.40 Blindness, one eye, unspecified eye; H40.9 Unspecified glaucoma; Z79.82 Long term (current) use of aspirin; Z79.51 Long term (current) use of inhaled steroids; Z79.899 Other long term (current) drug therapy; Z90.710 Acquired absence of both cervix and uterus; Z85.41 Personal history of malignant neoplasm of cervix uteri; Z97.0 Presence of artificial eye; Z86.39 Personal history of other endocrine, nutritional and metabolic disease; Z98.41 Cataract extraction status, right eye; Z88.0 Allergy status to penicillin; Z88.2 Allergy status to sulfonamides
CPT/HCPCS: 36415; 72100; 80048; 81001; 85025; 86850; 86891; 86900; 86901; 94640

== ENCOUNTER → 2017-07-26 | Outpatient (CLI) | payer OTHER ==
[2017-07-26 14:19] LABS: Basophils % (A) 0 %; Eosinophils % (A) 0 %; HCT 38.8 % (34.0-46.0); Lymphocytes # (A) 1.7 k/uL (1.0-4.8); Lymphocytes % (A) 10 %; MCH 30.9 pg (25.0-35.0); MCHC 33.8 g/dL (31.0-37.0); MCV 91.3 fL (80.0-100.0); Mean Platelet Volume 6.9; Monocytes # (A) 0.4 k/uL (0-1.0); Monocytes % (A) 2 %; Neutrophils # (A) 15.2 k/uL (1.3-7.7); Neutrophils % (A) 87 %; RBC 4.25 m/uL (3.80-5.40); RDW 14.5 % (11.5-15.5); WBC 17.4 k/uL (3.8-10.6)
[2017-07-26 14:26] LABS: HGB 13.1 gm/dL (11.4-16.0)
[2017-07-26 14:27] LABS: Platelet Count 446 k/uL (150-450)
== END | disposition home or self-care (01) ==
LOC: LABWHC1 13:22
PROVIDERS: ATTEND Nurse Practitioner
DX: D64.9 Anemia, unspecified (principal)
CPT/HCPCS: 36415; 85025

== ENCOUNTER → 2017-08-06 | Outpatient (CLI) | payer OTHER ==
--- NOTE | 2017-08-06 15:14 | US ---
EXAMINATION TYPE: US venous doppler duplex LE LT DATE OF EXAM: 08/06/2017 3:01 PM COMPARISON: NONE CLINICAL HISTORY: I80.9 PHLEBITIS AND THROMBOPHLEBITIS OF UNSPECIFIED SITE. Left leg pain, recent cherie k surgery (07-11-17) SIDE PERFORMED: Left TECHNIQUE: The lower extremity deep venous system is examined utilizing real time linear array sonog marge with graded compression, doppler sonography and color-flow sonography. VESSELS IMAGED: External Iliac Vein (EIV) Common Femoral Vein Deep Femoral Vein Greater Saphenous Vein * Femoral Vein Popliteal Vein Small Saphenous Vein * Proximal Calf Veins (* superficial vessels) Left Leg: No evidence of DVT at this time. Rouleaux flow noted left EIV extending into popliteal ve in, compression and flow noted throughout Grayscale, color doppler, spectral doppler imaging performed of the deep veins of the left lower extr emity. There is normal compressibility and directional flow. IMPRESSION: No ultrasound evidence for acute DVT in the left lower extremity.
== END | disposition home or self-care (01) ==
LOC: RADUSWWP 14:20
PROVIDERS: ATTEND Physical Medicine & Rehabilitation
DX: M79.89 Other specified soft tissue disorders (principal)

== ENCOUNTER → 2018-02-06 | Outpatient (CLI) | payer OTHER ==
--- NOTE | 2018-02-08 14:05 | MM ---
Reason for exam: screening (asymptomatic). Last mammogram was performed 2 years and 1 month ago. History: Patient is postmenopausal and has history of endometrial cancer at age 21. Physical Findings: A clinical breast exam by your physician is recommended on an annual basis and results should be correlated with mammographic findings. MG 3D Screening Mammo W/Cad Bilateral CC and MLO view(s) were taken. Prior study comparison: December 29, 2015, bilateral MG screening mammo w CAD. August 21, 2014, bilateral MG screening mammo w CAD. There are scattered fibroglandular densities. There is chronic nodularity bilaterally. No significant changes when compared with prior studies. ASSESSMENT: Benign, BI-RAD 2 RECOMMENDATION: Routine screening mammogram of both breasts in 1 year.
== END | disposition home or self-care (01) ==
LOC: RADMAMWWP 11:01
PROVIDERS: ATTEND Family Medicine
DX: Z12.31 Encounter for screening mammogram for malignant neoplasm of breast (principal)
CPT/HCPCS: 77063; 77067

== ENCOUNTER → 2019-01-04 | Outpatient (CLI) | payer OTHER ==
--- NOTE | 2019-01-04 18:13 | CT ---
EXAMINATION TYPE: CT abdomen pelvis w con DATE OF EXAM: 01/04/2019 COMPARISON: 01/06/2013 HISTORY: epigastric pain CT DLP: 565.6 mGycm Automated exposure control for dose reduction was used. TECHNIQUE: Helical acquisition of images was performed from the lung bases through the pelvis. CONTRAST: Performed with Oral Contrast and with IV Contrast, patient injected with 100 mL of Isovue 300. FINDINGS: Lung bases are clear. There is no pleural effusion. There is no pericardial effusion. Stomach is inta ct. Liver spleen pancreas gallbladder appear normal. Bile ducts are not dilated. There is no adrenal mass. Kidneys show satisfactory contrast opacification. There is no hydronephrosi s. Ureters are not dilated. There is no retroperitoneal adenopathy. Abdominal aorta is atheromatous. Bladder distends smoothly. There is no inguinal hernia. There is no free fluid in the pelvis. There i s no pelvic mass. There is hysterectomy. Appendix is not definitely seen. There is no sign of thickened appendix. There is no evidence of a aki wel obstruction. There is no mesenteric edema. There is no ascites or free air. There are surgical cl ips on the upper anterior abdominal wall. There is a first-degree L5-S1 spondylolisthesis. There is posterior fusion surgery at L5-S1. There is no lumbar compression fracture. I see no bony destructive process. Bony pelvis is intact. IMPRESSION: LUMBAR SPINE SURGERY. NO SIGN OF ACUTE ABDOMEN AND PELVIS. THERE IS CLEARING OF THE EPIGASTRIC VENTRA L HERNIA COMPARED TO OLD EXAM. I do not see a cause for abdominal pain.
== END | disposition home or self-care (01) ==
LOC: RADCTMAIN 11:45
PROVIDERS: ATTEND Student in an Organized Health Care Education/Training Program
DX: K43.9 Ventral hernia without obstruction or gangrene (principal)
CPT/HCPCS: 74177; Q9967

== ENCOUNTER → 2019-04-09 | Outpatient (CLI) | payer OTHER ==
--- NOTE | 2019-04-11 11:42 | MM ---
Reason for exam: screening (asymptomatic). Last mammogram was performed 1 year and 2 months ago. History: Patient is postmenopausal and has history of endometrial cancer at age 21. Physical Findings: A clinical breast exam by your physician is recommended on an annual basis and results should be correlated with mammographic findings. MG 3D Screening Mammo W/Cad Bilateral CC and MLO view(s) were taken. Prior study comparison: February 06, 2018, bilateral MG 3d screening mammo w/cad. December 29, 2015, bilateral MG screening mammo w CAD. There are scattered fibroglandular densities. There is chronic nodularity bilaterally. There is no dominant lesion. No significant changes when compared with prior studies. ASSESSMENT: Benign, BI-RAD 2 RECOMMENDATION: Routine screening mammogram of both breasts in 1 year.
== END | disposition home or self-care (01) ==
LOC: RADMAMWWP 11:53
PROVIDERS: ATTEND Family Medicine
DX: Z12.31 Encounter for screening mammogram for malignant neoplasm of breast (principal)
CPT/HCPCS: 77063; 77067

== ENCOUNTER → 2020-03-26 | Outpatient (CLI) | payer MEDICARE ==
[2020-03-26 09:54] LABS: Basophils # (A) 0.1 k/uL (0-0.2); Basophils % (A) 1 %; Eosinophils # (A) 0.4 k/uL (0-0.7); Eosinophils % (A) 4 %; Lymphocytes # (A) 3.3 k/uL (1.0-4.8); Lymphocytes % (A) 35 %; MCH 30.3 pg (25.0-35.0); MCHC 32.5 g/dL (31.0-37.0); MCV 93.2 fL (80.0-100.0); Mean Platelet Volume 7.7; Monocytes # (A) 0.5 k/uL (0-1.0); Monocytes % (A) 5 %; Neutrophils # (A) 5.1 k/uL (1.3-7.7); Neutrophils % (A) 53 %; Platelet Count 283 k/uL (150-450); RBC 4.61 m/uL (3.80-5.40); WBC 9.5 k/uL (3.8-10.6)
[2020-03-26 16:05] LABS: African American GFR (CKD) 68.5 (60.0-200.0); Albumin 4.6 g/dL (3.80-4.90); Albumin/Globulin Ratio 1.77 (1.60-3.17); Anion Gap 8.4 mmol/L (4.00-12.00); Calcium 9.7 mg/dL (8.7-10.3); Carbon Dioxide 27.6 mmol/L (21.6-31.8); Chol/HDL Ratio 3.62; Globulin 2.6 g/dL (1.6-3.3); LDL Cholesterol,Calculated 91.4 mg/dL (0.0-131.0); Non-African American GFR(CKD) 59.1 (60.0-200.0); Potassium 4.9 mmol/L (3.5-5.5); Total Bilirubin 0.3 mg/dL (0.2-1.2); Total Protein 7.2 g/dL (6.2-8.2); VLDL Calculation 26.6 mg/dL (5.00-40.00)
== END | disposition home or self-care (01) ==
LOC: LABWHC1 08:36
PROVIDERS: ATTEND Physician Assistant
DX: J44.9 Chronic obstructive pulmonary disease, unspecified (principal); E78.5 Hyperlipidemia, unspecified; I10 Essential (primary) hypertension
CPT/HCPCS: 36415; 80053; 80061; 85025

== ENCOUNTER → 2020-04-07 | Outpatient (CLI) | payer MEDICARE ==
--- NOTE | 2020-04-07 15:31 | US ---
EXAMINATION TYPE: US carotid duplex BILAT DATE OF EXAM: 04/07/2020 COMPARISON: NONE CLINICAL HISTORY: R09.89 Other specified symptoms and signs involvin. bruit dizziness EXAM MEASUREMENTS: RIGHT: Peak Systolic Velocity (PSV) cm/sec ----- Right CCA: 78.8 ----- Right ICA: 97.8 ----- Right ECA: 103 ICA/CCA ratio: 1.2 RIGHT: End Diastole cm/sec ----- Right CCA: 8.8 ----- Right ICA: 19 ----- Right ECA: 0 LEFT: Peak Systolic Velocity (PSV) cm/sec ----- Left CCA: 99.9 ----- Left ICA: 162 ----- Left ECA: 108 ICA/CCA ratio: 1.6 LEFT: End Diastole cm/sec ----- Left CCA: 12.2 ----- Left ICA: 31.8 ----- Left ECA: 0 VERTEBRALS (direction of flow): Right Vertebral: Antegrade Left Vertebral: Antegrade Rhythm: Normal Bilateral plaque visualized. No significant stenosis seen IMPRESSION: No evidence for hemodynamically significant stenosis. Criteria for Assigning % of Stenosis / Diameter reduction (Estimation based on the indirect measurements of the internal carotid artery velocities (ICA PSV). 1. Normal (no stenosis)=ICA PSV < 125 cm/s: ratio < 2.0: ICA EDV<40 cm/s. 2. Less than 50% stenosis=ICA PSV < 125 cm/s: ratio < 2.0: ICA EDV<40 cm/s. 3. 50 to 69% stenosis=ICA PSV of 125 to 230 cm/s: ration 2.0 ? 4.0: ICA EDV 40-100 cm/s. 4. Greater than 70% stenosis to near occlusion= ICA PSV > 230 cm/s: ratio > 4.0: ICA EDV > 100 cm/s. 5. Near occlusion= ICA PSV velocities may be low or undetectable: variable ratio and ICA EDV. 6. Total occlusion=unable to detect flow.
== END | disposition home or self-care (01) ==
LOC: RADUSWWP 14:54
PROVIDERS: ATTEND Family Medicine
DX: R09.89 Other specified symptoms and signs involving the circulatory and respiratory systems (principal)
CPT/HCPCS: 93880

== ENCOUNTER → 2020-06-24 | Outpatient (CLI) | payer MEDICARE ==
--- NOTE | 2020-06-29 11:37 | MM ---
Reason for exam: screening (asymptomatic). Last mammogram was performed 1 year and 2 months ago. History: Patient is postmenopausal and has history of endometrial cancer at age 21. Physical Findings: A clinical breast exam by your physician is recommended on an annual basis and results should be correlated with mammographic findings. MG 3D Screening Mammo W/Cad Bilateral CC and MLO view(s) were taken. Prior study comparison: April 09, 2019, bilateral MG 3d screening mammo w/cad. February 06, 2018, bilateral MG 3d screening mammo w/cad. There is chronic nodularity in the right breast. No significant changes when compared with prior studies. ASSESSMENT: Benign, BI-RAD 2 RECOMMENDATION: Routine screening mammogram of both breasts in 1 year.
== END | disposition home or self-care (01) ==
LOC: RADMAMWWP 12:58
PROVIDERS: ATTEND Family Medicine
DX: Z12.31 Encounter for screening mammogram for malignant neoplasm of breast (principal)
CPT/HCPCS: 77063; 77067

== ENCOUNTER 2020-07-10 17:31 | Emergency (ER) | payer MEDICARE ==
[2020-07-10 17:37] VITALS: BP 149/69; PULSE 77; RESP 16; TEMP 98.3
[2020-07-10] MEDS ORDERED: MORPHINE SULFATE 4 MG/ML SYRINGE IM STA (17:47)
[2020-07-10] MEDS ORDERED: LIDOCAINE 1% INJ 10MG/ML (20 ML MDV) SQ STA (17:47)
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
--- NOTE | 2020-07-10 18:25 | XR ---
EXAMINATION TYPE: XR lumbar spine 2 or 3V DATE OF EXAM: 07/10/2020 COMPARISON: 07/14/2017 HISTORY: Back pain. Fall. TECHNIQUE: 3 views FINDINGS: There is posterior fusion surgery at L5-S1. There is a second-degree L5-S1 spondylolisthesi s. There is disc prosthesis at L5-S1. Abdominal aorta is atheromatous. I see no compression fracture. There is a slight dextroscoliosis. Sacroiliac joints are intact. IMPRESSION: There is L5-S1 spondylolisthesis that appears worse than last exam. No acute fracture seen.
[2020-07-10] MEDS ORDERED: ONDANSETRON 4 MG TAB PO STA (18:26)
--- NOTE | 2020-07-10 18:26 | XR ---
EXAMINATION TYPE: XR forearm LT DATE OF EXAM: 07/10/2020 COMPARISON: NONE HISTORY: Fall. Possible foreign body. TECHNIQUE: 2 views FINDINGS: There is laceration deformity of the soft tissues over the distal ulna. I see no fracture n or dislocation. There is no sign of radiopaque foreign body. Elbow joint and wrist joint appear intac t. IMPRESSION: Laceration deformity. No fracture. No foreign body.
[2020-07-10] MEDS ORDERED: METOCLOPRAMIDE 10 MG TAB PO STA (19:25)
== END 2020-07-10 19:50 | disposition home or self-care (01) ==
LOC: EC 17:31
DX: S41.112A Laceration without foreign body of left upper arm, initial encounter (principal); I10 Essential (primary) hypertension; F32.9 Major depressive disorder, single episode, unspecified; F17.200 Nicotine dependence, unspecified, uncomplicated; Z79.82 Long term (current) use of aspirin; Z79.899 Other long term (current) drug therapy; Z88.0 Allergy status to penicillin; Z88.2 Allergy status to sulfonamides; Z85.41 Personal history of malignant neoplasm of cervix uteri; W10.9XXA Fall (on) (from) unspecified stairs and steps, initial encounter
CPT/HCPCS: 72100; 73090; 99283; 96372; 12002; J2270; J2001

== ENCOUNTER → 2021-05-06 | Outpatient (CLI) | payer MEDICARE ==
--- NOTE | 2021-05-06 11:28 | CTL ---
EXAMINATION TYPE: CT Low Dose Lung DATE OF EXAM ORDERED: 05/06/2021 HISTORY: 65-year-old female COPD, bronchitis, history of smoking. Lung cancer screening CT DLP: 94.[address] CTDI: 3 mGy Automated exposure control for dose reduction was used. SCREENING VISIT: Baseline COMPARISON: None TECHNIQUE: Low dose computed tomography scan was performed through the chest with coronal and sagitta l reconstructions. CT DIAGNOSTIC QUALITY: Satisfactory FINDINGS: Heart normal size without pericardial effusion. LAD and RCA coronary artery calcifications are presen t as well as mitral annular calcifications. Ectatic ascending aorta at 3.6 cm. Moderate atherosclerotic arch calcifications. There may be a nondo minant left vertebral artery that has its takeoff directly from the aortic arch. Precarinal lymph node measures 8 mm. No thoracic lymphadenopathy by CT size criteria. Mild to moderate diffuse bronchial wall thickening. Mild to moderate centrilobular and paraseptal emp hysema. Mild biapical pleural-parenchymal scarring. - Right midlung nodules measuring 7 mm and 5 mm, axial image 138 and 139. These may represent lymph n odes as they are located along the minor fissure. - 3 mm subpleural pulmonary nodule peripheral right lower lobe, axial image 142. - 7 mm subpleural pulmonary nodule right middle lobe, axial image 160. - 4 mm subpleural pulmonary nodule periphery of the left lower lobe, axial image 199. No consolidation or pleural effusion. Visualized upper abdomen shows moderate atherosclerotic aortic calcifications. Mild low-density thick ening of the bilateral adrenal glands may reflect adrenal hyperplasia. Some sutures and surgical mate rial along the anterior epigastrium abdominal wall. There may be mild fatty infiltration of the liver . Bones: Accentuated mid thoracic kyphosis. Superior endplate Schmorl's node of T10. Levoconvex curvatu re along the mid to lower thoracic spine. IMPRESSION: 1. LungRADS category 3 (Probably benign, 1-2% chance of malignancy). A few scattered 7 mm and smaller pulmonary nodules on baseline screening. 2. COPD with mild to moderate emphysema. Recommend smoking cessation. CT LUNG RAD AND CT CHEST RECOMMENDATION: Lung-Rad 3 Probably Benign: 6 month follow-up LDCT.
== END | disposition home or self-care (01) ==
LOC: RADCTMAIN 09:17
PROVIDERS: ATTEND Family Medicine
DX: Z12.2 Encounter for screening for malignant neoplasm of respiratory organs (principal); J43.9 Emphysema, unspecified; R91.1 Solitary pulmonary nodule; Z87.891 Personal history of nicotine dependence
CPT/HCPCS: 71271

== ENCOUNTER → 2021-10-26 | Outpatient (CLI) | payer MEDICARE ==
--- NOTE | 2021-10-27 11:48 | MM ---
Reason for Exam: Screening (asymptomatic). Last mammogram was performed 1 year(s) and 4 month(s) ago. Patient History: Menarche at age 11. First Full-Term at age 18. Hysterectomy at age 22. Postmenopausal. Endometrial cancer, age 21. Risk Values: Nevin 5 year model risk: 1.2%. NCI Lifetime model risk: 4.2%. Prior Study Comparison: 02/06/2018 Bilateral Screening Mammogram, [facility]. 04/09/2019 Bilateral Screening Mammogram, [facility]. 06/24/2020 Bilateral Screening Mammogram, [facility]. Tissue Density: There are scattered fibroglandular densities. Findings: Analyzed By CAD. Stable small chronic nodularity in the bilateral breasts. There is no suspicious group of microcalcifications or new suspicious mass in either breast. Overall Assessment: Benign, BI-RAD 2 Management: Screening Mammogram of both breasts in 1 year. A clinical breast exam by your physician is recommended on an annual basis and results should be correlated with mammographic findings. Electronically signed and approved by: Ridge Garcia M.D.
== END | disposition home or self-care (01) ==
LOC: RADMAMWWP 09:19
PROVIDERS: ATTEND Family Medicine
DX: Z12.31 Encounter for screening mammogram for malignant neoplasm of breast (principal)
CPT/HCPCS: 77063; 77067

== ENCOUNTER → 2022-03-15 | Outpatient (CLI) | payer MEDICARE ==
[2022-03-15 18:22] LABS: African American GFR (CKD) 67.5 (60.0-200.0); Anion Gap 9.9 mmol/L (10.00-18.00); BUN/Creat Ratio 16.7 Ratio (12.00-20.00); Blood Urea Nitrogen 16.7 mg/dL (9.0-27.0); Calcium 9.3 mg/dL (8.7-10.3); Carbon Dioxide 25.1 mmol/L (20.0-27.5); Non-African American GFR(CKD) 58.2 (60.0-200.0); Phosphorus 3.7 mg/dL (2.4-5.1); Potassium 5.1 mmol/L (3.5-5.5)
== END | disposition home or self-care (01) ==
LOC: LABWHC1 10:33
PROVIDERS: ATTEND Family Medicine
DX: I12.9 Hypertensive chronic kidney disease with stage 1 through stage 4 chronic kidney disease, or unspecified chronic kidney disease (principal); N18.31 Chronic kidney disease, stage 3a
CPT/HCPCS: 36415; 80048; 84100

== ENCOUNTER → 2022-11-02 | Outpatient (CLI) | payer MEDICARE ==
--- NOTE | 2022-11-03 20:23 | MM ---
Reason for Exam: Screening (asymptomatic). Last screening mammogram was performed 12 month(s) ago. Patient History: Menarche at age 11. First Full-Term at age 18. Hysterectomy at age 22. Postmenopausal. Endometrial cancer, age 21. Risk Values: Nevin 5 year model risk: 1.2%. NCI Lifetime model risk: 4.0%. Prior Study Comparison: 04/09/2019 Bilateral Screening Mammogram, [facility]. 06/24/2020 Bilateral Screening Mammogram, [facility]. 10/26/2021 Bilateral MG 3D screening mammo w/cad, [facility]. Tissue Density: There are scattered fibroglandular densities. Findings: Analyzed By CAD. Chronic nodularity on both sides. Prominent axillary lymph nodes are unchanged. There is no suspicious group of microcalcifications or new suspicious mass in either breast. Overall Assessment: Benign, BI-RAD 2 Management: Screening Mammogram of both breasts in 1 year. . Patient should continue monthly self-breast exams. A clinical breast exam by your physician is recommended on an annual basis. This exam should not preclude additional follow-up of suspicious palpable abnormalities. Note on Nevin scores and lifetime risk: 1. A Nevin score greater than 3% is considered moderate risk. If this is the case, consider specialist referral to assess eligibility for a risk reducing agent. 2. If overall lifetime risk for the development of breast cancer is 20% or higher, the patient may qualify for future screening with alternating mammogram and breast MRI. Electronically signed and approved by: Bossman Hansen M.D. Radiologist
== END | disposition home or self-care (01) ==
LOC: RADMAMWWP 15:12
PROVIDERS: ATTEND Family Medicine
DX: Z12.31 Encounter for screening mammogram for malignant neoplasm of breast (principal); Z78.0 Asymptomatic menopausal state
CPT/HCPCS: 77063; 77067

== ENCOUNTER → 2023-08-09 | Outpatient (CLI) | payer MEDICARE ==
--- NOTE | 2023-08-17 14:49 | MR ---
MRI right wrist without contrast INDICATION: Right wrist pain without trauma COMPARISON: None Multiplanar, multisequential MR imaging of the right wrist was obtained without IV contrast. FINDINGS: Tendons: The visualized portions of the flexor and extensor tendons are grossly intact. Nerves: The visualized portions of the ulnar and median nerve are unremarkable. Ligaments: The scapholunate ligament is not seen in totality, however, the visualized portions are unremarkable. The lunotriquetral ligament is intact. Trying to a fibrocartilage is likely torn. Distal radial ulnar joint: There is negative ulnar variance with substantial degenerative changes of the distal radial ulnar mynor nt with osteophytosis and bone marrow edema of the distal ulna, surrounding soft tissue edema and flu id within the distal radioulnar joint. Bone marrow: A few areas of subchondral degenerative type changes are noted throughout the carpus. Musculature: Visualized musculature is unremarkable. IMPRESSION: 1. Substantial degenerative changes of the distal radial ulnar joint with negative ulnar variance, os teophytosis, bone marrow edema and soft tissue edema with fluid in the distal radial ulnar joint. Tri angular fibrocartilage is probably torn. 2. A few areas of subchondral degenerative type changes are seen throughout the carpus.
== END | disposition home or self-care (01) ==
LOC: RADMRIMAIN 08:23
PROVIDERS: ATTEND Orthopaedic Surgery Orthopaedic Surgery of the Spine
DX: M25.531 Pain in right wrist (principal); R60.0 Localized edema; M47.812 Spondylosis without myelopathy or radiculopathy, cervical region; M25.78 Osteophyte, vertebrae; M50.122 Cervical disc disorder at C5-C6 level with radiculopathy; M50.222 Other cervical disc displacement at C5-C6 level; M50.322 Other cervical disc degeneration at C5-C6 level; M50.323 Other cervical disc degeneration at C6-C7 level

== ENCOUNTER → 2024-01-23 | Outpatient (CLI) | payer MEDICARE ==
--- NOTE | 2024-01-24 10:20 | MM ---
Reason for Exam: Screening (asymptomatic). Last mammogram was performed 1 year(s) and 3 month(s) ago. Patient History: Menarche at age 11. First Full-Term at age 18. Hysterectomy at age 22. Postmenopausal. Endometrial cancer, age 21. Risk Values: Nevin 5 year model risk: 1.2%. NCI Lifetime model risk: 3.9%. Prior Study Comparison: 06/24/2020 Bilateral Screening Mammogram, [facility]. 10/26/2021 Bilateral MG 3D screening mammo w/cad, [facility]. 11/02/2022 Bilateral MG 3D screening mammo w/cad, [facility]. Tissue Density: There are scattered areas of fibroglandular density. Findings: Analyzed By CAD. There is no suspicious group of microcalcifications or new suspicious mass in either breast. Overall Assessment: Benign, BI-RAD 2 Management: Screening Mammogram of both breasts in 1 year. . Patient should continue monthly self-breast exams. A clinical breast exam by your physician is recommended on an annual basis. This exam should not preclude additional follow-up of suspicious palpable abnormalities. Note on Nevin scores and lifetime risk: 1. A Nevin score greater than 3% is considered moderate risk. If this is the case, consider specialist referral to assess eligibility for a risk reducing agent. 2. If overall lifetime risk for the development of breast cancer is 20% or higher, the patient may qualify for future screening with alternating mammogram and breast MRI. Electronically signed and approved by: Adriel Castaneda M.D. Radiologis
== END | disposition home or self-care (01) ==
LOC: RADMAMWWP 10:27
PROVIDERS: ATTEND Family Medicine
DX: Z12.31 Encounter for screening mammogram for malignant neoplasm of breast
CPT/HCPCS: 77063; 77067